=== PATIENT | female | born 1965 | race Caucasian/White ===

== ENCOUNTER 2019-03-06 12:50 | Outpatient (RCR) | payer OTHER | END 2019-04-25 | disposition still patient (30) | LOC: WSOH | DX: M70.911 Unspecified soft tissue disorder related to use, overuse and pressure, right shoulder (principal); M70.912 Unspecified soft tissue disorder related to use, overuse and pressure, left shoulder; X50.3XXA Overexertion from repetitive movements, initial encounter; Y92.63 Factory as the place of occurrence of the external cause; Y93.H3 Activity, building and construction; Y99.0 Civilian activity done for income or pay; I12.9 Hypertensive chronic kidney disease with stage 1 through stage 4 chronic kidney disease, or unspecified chronic kidney disease; N18.9 Chronic kidney disease, unspecified; Z90.710 Acquired absence of both cervix and uterus; Z98.890 Other specified postprocedural states; M25.512 Pain in left shoulder; M25.511 Pain in right shoulder ==